=== PATIENT | female | born 1960 | race Caucasian/White ===

== ENCOUNTER 2017-03-03 13:46 | Outpatient (CLI) | payer OTHER ==
--- NOTE | 2017-03-08 12:46 | DIAGNOSTIC IMAGING REPORT ---
REFERRING PHYSICIAN/PROVIDER: Lambert ATTENDING PHYSICIAN/PROVIDER: Lambert CONSULTING CAR AND YARD SUPERVISOR: Felicita Verdin MD PROCEDURE PERFORMED: Pharmacologic stress test with myocardial perfusion imaging and quantitative gated SPECT to evaluate wall motion and left ventricular systolic function. INDICATION: ABNORMAL ECHO RADIOPHARMACEUTICAL: stress dose 30 mCi of technetium 99 sestamibi Rest dose 30 mCi of technetium 99 sestamibi PROCEDURAL DETAILS: following informed consent patient walked on Dewey protocol for 6 minutes and 40 seconds. Patient reached 7.9 Mets. Patient had appropriate heart rate and blood pressure response. Patient had no chest pain during physical activity. ECG DATA: Patient had no significant ST segment changes during physical activity. No arrhythmias. Resting EKG demonstrated normal sinus rhythm, heart rate 64 bpm, normal axis, no left ventricular hypertrophy, no significant ST segment changes. RAW DATA: normal myocardial tracer uptake. Lung heart ratio is grossly normal QUANTITATIVE GATED SPECT: rest ejection fraction is 64%. Stress ejection fraction is65%. No focal wall motion abnormality seen. MYOCARDIAL PERFUSION STUDY: no perfusion abnormalities seen. IMPRESSION: 1. Low risk graded exercise stress test with myocardial perfusion imaging. 2. No evidence of ischemia or prior infarct 3. Normal wall motion and left ventricular systolic function 4. Good exercise capacity for age
--- NOTE | 2017-03-08 12:46 | DIAGNOSTIC IMAGING REPORT ---
REFERRING PHYSICIAN/PROVIDER: Lambert ATTENDING PHYSICIAN/PROVIDER: Lambert CONSULTING COORDINATOR VOLUNTEER SERVICES: Felicita Verdin MD PROCEDURE PERFORMED: Pharmacologic stress test with myocardial perfusion imaging and quantitative gated SPECT to evaluate wall motion and left ventricular systolic function. INDICATION: ABNORMAL ECHO RADIOPHARMACEUTICAL: stress dose 30 mCi of technetium 99 sestamibi Rest dose 30 mCi of technetium 99 sestamibi PROCEDURAL DETAILS: following informed consent patient walked on Dewey protocol for 6 minutes and 40 seconds. Patient reached 7.9 Mets. Patient had appropriate heart rate and blood pressure response. Patient had no chest pain during physical activity. ECG DATA: Patient had no significant ST segment changes during physical activity. No arrhythmias. Resting EKG demonstrated normal sinus rhythm, heart rate 64 bpm, normal axis, no left ventricular hypertrophy, no significant ST segment changes. RAW DATA: normal myocardial tracer uptake. Lung heart ratio is grossly normal QUANTITATIVE GATED SPECT: rest ejection fraction is 64%. Stress ejection fraction is65%. No focal wall motion abnormality seen. MYOCARDIAL PERFUSION STUDY: no perfusion abnormalities seen. IMPRESSION: 1. Low risk graded exercise stress test with myocardial perfusion imaging. 2. No evidence of ischemia or prior infarct 3. Normal wall motion and left ventricular systolic function 4. Good exercise capacity for age
== END 2017-03-03 23:00 ==
LOC: NM SRH 13:46
PROC: 4A02XM4 Measurement of Cardiac Total Activity, External Approach (ICD-10-PCS; principal; 2017-03-03)
DX: R07.9 Chest pain, unspecified (principal); R94.39 Abnormal result of other cardiovascular function study